=== PATIENT | female | born 1950 | race Caucasian/White ===

== ENCOUNTER → 2019-08-04 | Day surgery (SDC) | payer OTHER, BC ==
--- NOTE | 2019-08-05 16:13 | PATH ---
Surgical Pathology Report Patient Name: SCOUT MCHUGH [facility]. Rec. #: [id number] /Age/Gender: 1950 (Age: 68) / F Account: [id number] Location: [facility] Taken: 08/04/2019 Received: 08/04/2019 Reported: 08/05/2019 Physicians: Ame Melo M.D. Specimen(s) Received A: LEFT BREAST WITH CALCIFICATIONS B: LEFT BREAST WITHOUT CALCIFICATIONS Clinical History Nonpalpable lesion Mammographic findings: Microcalcification, suspicious Final Diagnosis A. BREAST, LEFT, WITH CALCIFICATIONS, STEREOTACTIC CORE BIOPSY: BENIGN BREAST PARENCHYMA WITH STROMAL FIBROSIS, DILATED DUCTS, MICROCYSTS, USUAL DUCTAL HYPERPLASIA, COLUMNAR CELL CHANGES, SCLEROSING ADENOSIS, CYSTIC APOCRINE METAPLASIA, WITH ASSOCIATED MICROCALCIFICATIONS. B. BREAST, LEFT, WITHOUT CALCIFICATIONS, STEREOTACTIC CORE BIOPSY: BENIGN BREAST PARENCHYMA WITH STROMAL FIBROSIS, DILATED DUCTS, AND MICROCYSTS. Electronically Signed Halie Mcdonald M.D. Gross Description A. Received in formalin labeled "left breast with calcifications," are 10 sampson-yellow, cylindrical portions of fibroadipose tissue ranging from 0.5-3.2 cm in length and averaging 0.2 cm in diameter. The specimens are submitted in toto in 2 cassettes. B. Received in formalin labeled "left breast without calcifications," are 3 sampson-yellow, cylindrical portions of fibroadipose tissue ranging from 1.4-1.6 cm in length and averaging 0.3 cm in diameter. The specimens are submitted in toto in one cassette. Time to formalin fixation: 3 minutes Total formalin fixation time: Approximately 7 hours. DL/08/04/2019 saudi/08/04/2019
== END | disposition home or self-care (01) ==
LOC: FMAMMOTONE 10:16
PROVIDERS: ATTEND Surgery Surgical Oncology
PROC: 0HBU3ZX Excision of Left Breast, Percutaneous Approach, Diagnostic (ICD-10-PCS; principal; 2019-08-04)
DX: R92.1 Mammographic calcification found on diagnostic imaging of breast (principal); N60.12 Diffuse cystic mastopathy of left breast; N60.22 Fibroadenosis of left breast; N60.32 Fibrosclerosis of left breast; N60.82 Other benign mammary dysplasias of left breast; N64.89 Other specified disorders of breast
CPT/HCPCS: 19081; 76098-TC-FY; 87899; 88305-TC; A4648

== ENCOUNTER 2021-03-14 04:36 | Day surgery (SDC) | payer OTHER, BC ==
[2021-03-13 12:35] VITALS: BMI 29.7
[2021-03-14 09:07] VITALS: BP 116/46; PULSE 59; TEMP 97
== END 2021-03-14 09:15 | disposition home or self-care (01) ==
LOC: JASU-ENDO 04:36
PROVIDERS: ATTEND Internal Medicine Gastroenterology
PROC: 0DJD8ZZ Inspection of Lower Intestinal Tract, Via Natural or Artificial Opening Endoscopic (ICD-10-PCS; principal; 2021-03-14 08:00)
DX: Z12.11 Encounter for screening for malignant neoplasm of colon (principal); Z85.048 Personal history of other malignant neoplasm of rectum, rectosigmoid junction, and anus

== ENCOUNTER → 2023-10-08 | Day surgery (SDC) | payer OTHER, BC | END | disposition home or self-care (01) | LOC: FMAMMOTONE 09:56 | PROVIDERS: ATTEND Physician Assistant | PROC: 0HBT3ZX Excision of Right Breast, Percutaneous Approach, Diagnostic (ICD-10-PCS; principal; 2023-10-08) | DX: N60.21 Fibroadenosis of right breast (principal); N60.81 Other benign mammary dysplasias of right breast; N64.89 Other specified disorders of breast; R92.1 Mammographic calcification found on diagnostic imaging of breast | CPT/HCPCS: 19081; 76098-TC-FY; 87899; 88305-TC; A4648 ==